=== PATIENT | female | born 1940 ===

== ENCOUNTER 2022-03-20 11:55 | Inpatient (IN) ==
[2022-03-20] MEDS ORDERED: Pantoprazole VIAL 40 MG VIAL IV ONE (12:25)
[2022-03-20] MEDS ORDERED: Acetaminophen IV 1 GM/100ML 1,000 MG/100 ML BAG IV ONE (12:27)
[2022-03-20 12:54] LABS: ABS Basophils 0.1 10^3/ul (0-0.2); ABS Lymphocytes 0.4 10^3/ul (1.0-4.8); ABS Monocytes 0.6 10^3/ul (0-0.8); ABS Neutrophils 5.5 10^3/ul (1.5-7.7); Eosinophil % 0.1 %; Hematocrit 35 % (35-47); Hemoglobin 11.3 g/dL (12.0-16.0); Lymphocyte % 5.8 %; Mean Corpuscular HGB Conc 33 g/dL (31-36); Mean Corpuscular Hemoglobin 31 pg (27-31); Mean Corpuscular Volume 94 fL (80-97); Mean Platelet Volume 7.4 fL (7.4-10.4); Platelet Count 342 10^3/uL (150-450); Red Blood Count 3.68 10^6 /uL (3.70-4.87); Red Cell Distribution Width 15 % (10-15); White Blood Count 6.5 10^3/uL (3.5-10.8)
[2022-03-20 13:29] LABS: Albumin 3.4 g/dL (3.2-5.2); Albumin/Globulin Ratio 1.5 (1-3); C Reactive Protein 137.04 mg/L (<8.01); Calcium 8.9 mg/dL (8.6-10.3); Globulin 2.3 g/dL (2-4); Total Bilirubin 0.5 mg/dL (0.2-1.0); Total Protein 5.7 g/dL (6.4-8.9); eGFR CKD-EPI 81.5 (>60)
[2022-03-20 14:22] LABS: High Sensitivity Troponin 1 Hr 6 pg/mL (<15)
[2022-03-20] MEDS ORDERED: Remdesivir 100 mg Vial 100 MG in NS 0.9% 250 ml 230 ML IV SCH (17:00)
[2022-03-20] MEDS ORDERED: Remdesivir 100 mg Vial 200 MG in NS 0.9% 250 ml 210 ML IV ONE (17:29)
[2022-03-20] MEDS ORDERED: Lactated Ringers 1000 ml BAG 1,000 ML IV SCH (19:00)
[2022-03-20 21:49] LABS: INR 1.03 (0.89-1.11)
[2022-03-20] MEDS: Carbidopa/Levodop 25/100 MG TAB PO SCH (21:50)
[2022-03-20] MEDS: Enoxaparin 40 MG/0.4 ML SYR SUBCUT SCH (21:51)
[2022-03-20] MEDS: Pantoprazole VIAL 40 MG VIAL IV SCH (21:51)
[2022-03-20 22:16] LABS: Albumin 3.3 g/dL (3.2-5.2); Albumin/Globulin Ratio 1.6 (1-3); Calcium 8.4 mg/dL (8.6-10.3); Globulin 2.1 g/dL (2-4); Potassium 4.2 mmol/L (3.5-5.0); Total Bilirubin 0.4 mg/dL (0.2-1.0); Total Protein 5.4 g/dL (6.4-8.9); eGFR CKD-EPI 65.2 (>60)
[2022-03-21 01:20] LABS: Hematocrit 33 % (35-47); Hemoglobin 10.8 g/dL (12.0-16.0)
[2022-03-21 07:09] LABS: ABS Lymphocytes 0.5 10^3/ul (1.0-4.8); ABS Monocytes 0.5 10^3/ul (0-0.8); Eosinophil % 0.3 %; Hematocrit 32 % (35-47); Hemoglobin 10.7 g/dL (12.0-16.0); Lymphocyte % 13.2 %; Mean Corpuscular HGB Conc 33 g/dL (31-36); Mean Corpuscular Hemoglobin 31 pg (27-31); Mean Corpuscular Volume 94 fL (80-97); Mean Platelet Volume 7.2 fL (7.4-10.4); Nucleated Red Blood Cells % 0.1; Platelet Count 294 10^3/uL (150-450); Red Blood Count 3.45 10^6 /uL (3.70-4.87); Red Cell Distribution Width 15 % (10-15); White Blood Count 4.1 10^3/uL (3.5-10.8)
[2022-03-21 07:23] LABS: INR 1.07 (0.89-1.11)
[2022-03-21 07:50] LABS: ALT < 3 U/L (7-52); AST 14 U/L (13-39); Albumin 2.9 g/dL (3.2-5.2); Albumin/Globulin Ratio 1.4 (1-3); Alkaline Phosphatase 66 U/L (35-149); Anion Gap 10 mmol/L (2-11); Blood Urea Nitrogen 11 mg/dL (6-24); CO2 Carbon Dioxide 24 mmol/L (22-32); Calcium 7.9 mg/dL (8.6-10.3); Chloride 105 mmol/L (101-111); Globulin 2.1 g/dL (2-4); Glucose 80 mg/dL (70-100); Potassium 3.8 mmol/L (3.5-5.0); Sodium 139 mmol/L (135-145); eGFR CKD-EPI 76.5 (>60)
[2022-03-21] MEDS: Carbidopa/Levodop 25/100 MG TAB PO SCH ×4 (08:58→20:54)
[2022-03-21] MEDS: Pantoprazole VIAL 40 MG VIAL IV SCH (09:00)
[2022-03-21] MEDS: Enoxaparin 40 MG/0.4 ML SYR SUBCUT SCH ×2 (17:59→18:09)
[2022-03-21] MEDS: Remdesivir 100 mg Vial 100 MG in NS 0.9% 250 ml 230 ML IV SCH (20:24)
[2022-03-22 07:05] LABS: Hematocrit 32 % (35-47); Hemoglobin 10.7 g/dL (12.0-16.0); Mean Corpuscular HGB Conc 33 g/dL (31-36); Mean Corpuscular Hemoglobin 31 pg (27-31); Mean Corpuscular Volume 94 fL (80-97); Mean Platelet Volume 7.4 fL (7.4-10.4); Platelet Count 318 10^3/uL (150-450); Red Blood Count 3.44 10^6 /uL (3.70-4.87); Red Cell Distribution Width 15 % (10-15); White Blood Count 3.1 10^3/uL (3.5-10.8)
[2022-03-22 07:13] LABS: INR 1.09 (0.89-1.11)
[2022-03-22 07:52] LABS: Albumin 2.9 g/dL (3.2-5.2); Albumin/Globulin Ratio 1.4 (1-3); Calcium 7.7 mg/dL (8.6-10.3); Globulin 2.1 g/dL (2-4); Potassium 3.6 mmol/L (3.5-5.0); Total Bilirubin 0.3 mg/dL (0.2-1.0); eGFR CKD-EPI 87.6 (>60)
[2022-03-22] MEDS: Carbidopa/Levodop 25/100 MG TAB PO SCH ×4 (09:13→21:35)
[2022-03-22] MEDS: Enoxaparin 40 MG/0.4 ML SYR SUBCUT SCH (18:11)
[2022-03-22 18:47] LABS: Urine Appearance Clear; Urine Color Yellow
[2022-03-22 18:48] LABS: Urine Bilirubin Negative (Negative); Urine Glucose Negative (Negative); Urine Ketones 1+ (15mg/dL) (Negative)
[2022-03-22 18:49] LABS: Urine Blood 1+ (Small) (Negative); Urine Nitrite Negative (Negative); Urine Protein 1+ (30 mg/dL) (Negative); Urine Urobilinogen 0.2 (Negative) (Negative)
[2022-03-22 18:58] LABS: Urine Bacteria 1+ (Absent); Urine Red Blood Cell 3+(>10/hpf) (Absent); Urine Squamous Epithelial Cell Present (Absent); Urine White Blood Cell 3+(>20/hpf) (Absent)
[2022-03-22] MEDS: Remdesivir 100 mg Vial 100 MG in NS 0.9% 250 ml 230 ML IV SCH (21:36)
[2022-03-23 05:50] LABS: ABS Eosinophils 0.1 10^3/ul (0-0.6); ABS Monocytes 0.4 10^3/ul (0-0.8); ABS Neutrophils 1.4 10^3/ul (1.5-7.7); Hematocrit 32 % (35-47); Hemoglobin 10.6 g/dL (12.0-16.0); Lymphocyte % 32.9 %; Mean Corpuscular HGB Conc 33 g/dL (31-36); Mean Corpuscular Hemoglobin 31 pg (27-31); Mean Corpuscular Volume 93 fL (80-97); Mean Platelet Volume 7.5 fL (7.4-10.4); Platelet Count 339 10^3/uL (150-450); Red Blood Count 3.43 10^6 /uL (3.70-4.87); Red Cell Distribution Width 15 % (10-15)
[2022-03-23 06:01] LABS: INR 1.1 (0.89-1.11)
[2022-03-23 06:14] LABS: ALT < 3 U/L (7-52); AST 12 U/L (13-39); Albumin 2.9 g/dL (3.2-5.2); Albumin/Globulin Ratio 1.5 (1-3); Alkaline Phosphatase 69 U/L (35-149); Anion Gap 5 mmol/L (2-11); Blood Urea Nitrogen 8 mg/dL (6-24); CO2 Carbon Dioxide 26 mmol/L (22-32); Calcium 7.8 mg/dL (8.6-10.3); Chloride 105 mmol/L (101-111); Globulin 1.9 g/dL (2-4); Glucose 97 mg/dL (70-100); Potassium 3.3 mmol/L (3.5-5.0); Sodium 136 mmol/L (135-145); Total Protein 4.8 g/dL (6.4-8.9); eGFR CKD-EPI 89.4 (>60)
[2022-03-23] MEDS ORDERED: Potassium Chlor 20 meq TAB.ER PO ONE (07:32)
[2022-03-23] MEDS: Carbidopa/Levodop 25/100 MG TAB PO SCH ×4 (09:23→20:10)
[2022-03-23] MEDS ORDERED: Glycerin ADULT 2.4 gm SUPP PR PRN (11:01)
[2022-03-23] MEDS ORDERED: Magnesium Hydroxide LIQ 30 ML UDC PO PRN (11:01)
[2022-03-23] MEDS ORDERED: Sodium Phosphate ADULT ENEMA 133 ML BTL PR PRN (11:01)
[2022-03-23] MEDS: Enoxaparin 40 MG/0.4 ML SYR SUBCUT SCH (17:58)
[2022-03-23] MEDS ORDERED: Senna TAB 8.6 mg TAB PO SCH (21:00)
[2022-03-24 05:56] VITALS: BP 119/58
[2022-03-24 06:14] LABS: ABS Eosinophils 0.1 10^3/ul (0-0.6); ABS Lymphocytes 0.9 10^3/ul (1.0-4.8); ABS Monocytes 0.4 10^3/ul (0-0.8); ABS Neutrophils 1.3 10^3/ul (1.5-7.7); Eosinophil % 3.9 %; Hematocrit 30 % (35-47); Lymphocyte % 32.6 %; Mean Corpuscular HGB Conc 33 g/dL (31-36); Mean Corpuscular Hemoglobin 30 pg (27-31); Mean Corpuscular Volume 92 fL (80-97); Mean Platelet Volume 7.5 fL (7.4-10.4); Platelet Count 347 10^3/uL (150-450); Red Cell Distribution Width 15 % (10-15); White Blood Count 2.8 10^3/uL (3.5-10.8)
[2022-03-24 06:22] LABS: INR 1.15 (0.89-1.11)
[2022-03-24 06:34] LABS: ALT < 3 U/L (7-52); AST 11 U/L (13-39); Albumin 2.9 g/dL (3.2-5.2); Albumin/Globulin Ratio 1.5 (1-3); Alkaline Phosphatase 61 U/L (35-149); Anion Gap 9 mmol/L (2-11); Blood Urea Nitrogen 8 mg/dL (6-24); CO2 Carbon Dioxide 23 mmol/L (22-32); Calcium 7.8 mg/dL (8.6-10.3); Chloride 107 mmol/L (101-111); Glucose 96 mg/dL (70-100); Potassium 3.5 mmol/L (3.5-5.0); Sodium 139 mmol/L (135-145); Total Protein 4.9 g/dL (6.4-8.9)
== END 2022-03-24 09:24 | DRG 70 ==
LOC: SUATTDRO → ED 11:55 → SUATTDRO 16:06 → EDHOLD 16:06 → MEDTELE 20:27
PROVIDERS: ADMIT Internal Medicine; ATTEND Internal Medicine